=== PATIENT | male | born 1945 | race Caucasian/White ===

== ENCOUNTER 2022-05-05 13:16 | Inpatient (IN) | payer MEDICARE, OTHER ==
[2022-05-05 18:44] VITALS: BMI 29.0
[2022-05-06] MEDS ORDERED: tiZANidine HCl 4 MG TAB PO PRN (00:50)
[2022-05-06] MEDS ORDERED: Acetaminophen 500 MG TAB PO PRN (00:52)
[2022-05-06] MEDS ORDERED: FLU VACC QS2022-23(65YR UP)/PF 240 MCG/0.7 ML SYRINGE IM ONE (09:00)
[2022-05-06 09:20] LABS: #Basophils 0.1 thou/uL (0.0-0.2); #Eosinphils 0.3 thou/uL (0.0-0.7); #Lymphocytes 1.6 thou/uL (1.20-3.40); #Monocytes 0.9 thou/uL (0.11-0.59); #Neutrophils 4.5 thou/uL (1.40-6.50); %Basophils 1.6 % (0.0-1.0); %Eosinophils 3.5 % (0.0-10.0); %Lymphocytes 21.9 % (21.0-51.0); %Monocytes 11.8 % (0.0-10.0); %Neutrophils 61.2 % (42.0-75.0); Mean Corpuscular HGB CONC 35.9 g/dL (32.0-36.0); Mean Corpuscular Hemoglobin 36.1 pg (27.0-31.0); Mean Platelet Volume 7.3 fL (7.4-10.4); Platelet Count 328 10x3/uL (130-400); RBC Distribution Width 11.7 % (11.5-14.5); Red Blood Cell (RBC) Count 4.16 mill/uL (4.70-6.10); White Blood Cell (WBC) Count 7.3 10x3/uL (4.8-10.8)
[2022-05-06 09:21] LABS: ALT (SGPT) 13 U/L (8-55); AST (SGOT) 16 U/L (5-34); Albumin 3.6 g/dL (3.4-4.8); Alkaline Phosphatase 70 U/L (40-110); Anion Gap 16 mmol/L (10-20); BUN (Urea Nitrogen) 10 mg/dL (8.4-25.7); Bilirubin, Total 1.1 mg/dL (0.2-1.2); Calc. Creatinine Clearance 109 mL/min (70-130); Calcium 9.3 mg/dL (7.8-10.44); Carbon Dioxide 27 mmol/L (23-31); Chloride 98 mmol/L (98-107); Estimated GFR 92; Glucose 159 mg/dL (83-110); Potassium 3.6 mmol/L (3.5-5.1); Protein, Total 6.6 g/dL (5.8-8.1); Sodium 137 mmol/L (136-145)
[2022-05-06] MEDS: Amlodipine 10 MG TAB PO SCH (10:27)
[2022-05-06] MEDS: Furosemide 20 MG TAB PO SCH (10:27)
[2022-05-06] MEDS: Finasteride 5 MG TAB PO SCH (10:28)
[2022-05-06] MEDS: metFORMIN 500 MG TAB PO SCH ×2 (10:28→16:17)
[2022-05-06] MEDS: Tamsulosin HCl 0.4 MG CAP PO SCH (10:28)
[2022-05-06] MEDS: Multivitamin W/ Minerals 1 TAB PO SCH (10:29)
[2022-05-06] MEDS: Cephalexin 500 MG CAP PO SCH ×4 (10:29→20:45)
[2022-05-06] MEDS: Lisinopril 20 MG TAB PO SCH ×2 (10:34→20:45)
[2022-05-06] MEDS: DOXYCYCLINE 20 MG PO SCH (12:57)
[2022-05-06] MEDS ORDERED: Senokot S 8.6-50 MG TAB PO PRN (14:04)
[2022-05-06] MEDS: azaTHIOprine 50 MG TAB PO SCH ×2 (16:51→20:45)
[2022-05-06] MEDS: Atorvastatin Calcium 40 MG TAB PO SCH (20:45)
[2022-05-06] MEDS ORDERED: Sodium Chloride 0.65% Nasal 44 ML BOT EA NARE PRN (20:50)
[2022-05-06] MEDS ORDERED: Acetaminophen 650 MG Suppository PR PRN (20:50)
[2022-05-06] MEDS ORDERED: Cepastat Lozenges 1 LOZ PO PRN (20:50)
[2022-05-06] MEDS ORDERED: Benzonatate 100 MG CAP PO PRN (20:50)
[2022-05-06] MEDS ORDERED: Bisacodyl 10 MG SUPP PR PRN (20:50)
[2022-05-06] MEDS ORDERED: Artificial Tear Sol 15 ML BOT EA EYE PRN (20:50)
[2022-05-06] MEDS ORDERED: Calcium Carbonate 500 MG ChewTAB PO PRN (20:50)
[2022-05-06] MEDS ORDERED: Guaifenesin DM 100-10/5 ML UDCUP PO PRN (20:50)
[2022-05-06] MEDS ORDERED: Bisacodyl 5 MG TAB PO PRN (20:50)
[2022-05-07] MEDS: Acetaminophen 325 MG TAB PO PRN (05:24)
[2022-05-07 06:16] LABS: #Basophils 0.1 thou/uL (0.0-0.2); #Eosinphils 0.3 thou/uL (0.0-0.7); #Lymphocytes 1.6 thou/uL (1.20-3.40); #Monocytes 0.6 thou/uL (0.11-0.59); #Neutrophils 3.6 thou/uL (1.40-6.50); %Eosinophils 4.7 % (0.0-10.0); %Lymphocytes 26.2 % (21.0-51.0); %Monocytes 10.1 % (0.0-10.0); Hemoglobin 15.1 g/dL (14.0-18.0); Mean Corpuscular HGB CONC 34.9 g/dL (32.0-36.0); Mean Corpuscular Hemoglobin 35.8 pg (27.0-31.0); Mean Platelet Volume 7.4 fL (7.4-10.4); Platelet Count 342 10x3/uL (130-400); RBC Distribution Width 11.9 % (11.5-14.5); Red Blood Cell (RBC) Count 4.22 mill/uL (4.70-6.10); White Blood Cell (WBC) Count 6.2 10x3/uL (4.8-10.8)
[2022-05-07 06:19] LABS: Anion Gap 17 mmol/L (10-20); BUN (Urea Nitrogen) 9 mg/dL (8.4-25.7); Calc. Creatinine Clearance 115 mL/min (70-130); Calcium 9.6 mg/dL (7.8-10.44); Carbon Dioxide 28 mmol/L (23-31); Chloride 100 mmol/L (98-107); Estimated GFR 93; Glucose 160 mg/dL (83-110); Potassium 3.6 mmol/L (3.5-5.1); Sodium 141 mmol/L (136-145)
[2022-05-07] MEDS: Polyethylene Glycol 3350 17 GM Packet PO SCH (08:45)
[2022-05-07] MEDS: Lisinopril 20 MG TAB PO SCH ×2 (08:45→21:11)
[2022-05-07] MEDS: Finasteride 5 MG TAB PO SCH (08:45)
[2022-05-07] MEDS: Furosemide 20 MG TAB PO SCH (08:46)
[2022-05-07] MEDS: Tamsulosin HCl 0.4 MG CAP PO SCH (08:46)
[2022-05-07] MEDS: azaTHIOprine 50 MG TAB PO SCH ×2 (08:46→21:11)
[2022-05-07] MEDS: Multivitamin W/ Minerals 1 TAB PO SCH (08:46)
[2022-05-07] MEDS: Cephalexin 500 MG CAP PO SCH ×4 (08:46→21:11)
[2022-05-07] MEDS: metFORMIN 500 MG TAB PO SCH ×2 (08:47→16:09)
[2022-05-07] MEDS: Amlodipine 10 MG TAB PO SCH (08:47)
[2022-05-07] MEDS: DOXYCYCLINE 20 MG PO SCH (11:35)
[2022-05-07] MEDS: KETOCONAZOLE SHAMPOO TOP SCH (11:36)
[2022-05-07] MEDS: Atorvastatin Calcium 40 MG TAB PO SCH (21:11)
[2022-05-08] MEDS: Polyethylene Glycol 3350 17 GM Packet PO SCH (07:52)
[2022-05-08] MEDS: metFORMIN 500 MG TAB PO SCH ×2 (07:54→18:02)
[2022-05-08] MEDS: Cephalexin 500 MG CAP PO SCH ×4 (07:54→20:18)
[2022-05-08] MEDS: Multivitamin W/ Minerals 1 TAB PO SCH (07:55)
[2022-05-08] MEDS: Amlodipine 10 MG TAB PO SCH (07:56)
[2022-05-08] MEDS: azaTHIOprine 50 MG TAB PO SCH ×2 (07:57→20:18)
[2022-05-08] MEDS: Finasteride 5 MG TAB PO SCH (07:57)
[2022-05-08] MEDS: Furosemide 20 MG TAB PO SCH (07:57)
[2022-05-08] MEDS: Lisinopril 20 MG TAB PO SCH ×2 (08:03→20:18)
[2022-05-08] MEDS: Tamsulosin HCl 0.4 MG CAP PO SCH (08:03)
[2022-05-08] MEDS: DOXYCYCLINE HYCLATE 20 MG PO SCH (09:40)
[2022-05-08] MEDS: Acetaminophen 325 MG TAB PO PRN ×2 (09:56→23:18)
[2022-05-08] MEDS ORDERED: HumaLOG 300 UNITS/3 ML VIAL SC PRN (17:45)
[2022-05-08] MEDS: Atorvastatin Calcium 40 MG TAB PO SCH (20:18)
[2022-05-09 08:48] VITALS: TEMP 98
[2022-05-09] MEDS: Cephalexin 500 MG CAP PO SCH ×2 (09:42→12:04)
[2022-05-09] MEDS: Finasteride 5 MG TAB PO SCH (09:42)
[2022-05-09] MEDS: Amlodipine 10 MG TAB PO SCH (09:42)
[2022-05-09] MEDS: Polyethylene Glycol 3350 17 GM Packet PO SCH ×2 (09:42→09:49)
[2022-05-09] MEDS: metFORMIN 500 MG TAB PO SCH (09:43)
[2022-05-09] MEDS: Furosemide 20 MG TAB PO SCH (09:43)
[2022-05-09] MEDS: Multivitamin W/ Minerals 1 TAB PO SCH (09:43)
[2022-05-09] MEDS: Tamsulosin HCl 0.4 MG CAP PO SCH (09:45)
[2022-05-09] MEDS: azaTHIOprine 50 MG TAB PO SCH (09:45)
[2022-05-09] MEDS: Lisinopril 20 MG TAB PO SCH (09:45)
[2022-05-09] MEDS: DOXYCYCLINE HYCLATE 20 MG PO SCH (09:46)
[2022-05-09] MEDS: KETOCONAZOLE SHAMPOO TOP SCH (09:47)
[2022-05-09 14:45] VITALS: BP 102/72
== END 2022-05-09 17:53 | disposition short-term general hospital (02) | DRG 948 ==
LOC: NAV ACUTE 15:45
PROVIDERS: ADMIT Family Medicine; ATTEND Family Medicine
DX: R53.1 Weakness (principal); K50.90 Crohn's disease, unspecified, without complications; M19.90 Unspecified osteoarthritis, unspecified site; I25.10 Atherosclerotic heart disease of native coronary artery without angina pectoris; K21.9 Gastro-esophageal reflux disease without esophagitis; M10.9 Gout, unspecified; I10 Essential (primary) hypertension; E66.9 Obesity, unspecified; Z96.653 Presence of artificial knee joint, bilateral; E78.2 Mixed hyperlipidemia; E11.65 Type 2 diabetes mellitus with hyperglycemia; Z66 Do not resuscitate; N40.1 Benign prostatic hyperplasia with lower urinary tract symptoms; R33.8 Other retention of urine; Z20.822 Contact with and (suspected) exposure to COVID-19; Z79.84 Long term (current) use of oral hypoglycemic drugs; Z79.899 Other long term (current) drug therapy; Z90.49 Acquired absence of other specified parts of digestive tract; Z98.890 Other specified postprocedural states; Z95.1 Presence of aortocoronary bypass graft; Z98.52 Vasectomy status; Z68.29 Body mass index [BMI] 29.0-29.9, adult
CPT/HCPCS: 36415; 36416; 80048; 80053; 85025; 87811; J1650; J1815; J7500

== ENCOUNTER 2022-05-09 14:21 | Emergency (ER) | payer MEDICARE ==
[2022-05-09 14:42] LABS: #Basophils 0.1 thou/uL (0.0-0.2); #Eosinphils 0.3 thou/uL (0.0-0.7); #Lymphocytes 1.6 thou/uL (1.20-3.40); #Monocytes 0.8 thou/uL (0.11-0.59); #Neutrophils 3.5 thou/uL (1.40-6.50); %Basophils 1.7 % (0.0-1.0); %Eosinophils 4.5 % (0.0-10.0); %Lymphocytes 25.1 % (21.0-51.0); %Monocytes 12.5 % (0.0-10.0); %Neutrophils 56.1 % (42.0-75.0); Hemoglobin 14.5 g/dL (14.0-18.0); Mean Corpuscular HGB CONC 34.4 g/dL (32.0-36.0); Mean Platelet Volume 7.2 fL (7.4-10.4); Platelet Count 331 10x3/uL (130-400); RBC Distribution Width 11.4 % (11.5-14.5); Red Blood Cell (RBC) Count 4.13 mill/uL (4.70-6.10); White Blood Cell (WBC) Count 6.2 10x3/uL (4.8-10.8)
[2022-05-09 14:43] LABS: Prothrombin Time 13.5 sec (12.0-14.7)
[2022-05-09 14:44] LABS: PTT 31.1 sec (22.9-36.1)
[2022-05-09 14:53] LABS: ALT (SGPT) 20 U/L (8-55); AST (SGOT) 24 U/L (5-34); Albumin 3.9 g/dL (3.4-4.8); Alkaline Phosphatase 90 U/L (40-110); Anion Gap 17 mmol/L (10-20); BUN (Urea Nitrogen) 11 mg/dL (8.4-25.7); Bilirubin, Total 0.9 mg/dL (0.2-1.2); Calc. Creatinine Clearance 0 mL/min (70-130); Calcium 9.3 mg/dL (7.8-10.44); Carbon Dioxide 25 mmol/L (23-31); Chloride 101 mmol/L (98-107); Estimated GFR 90; Globulin 2.7 g/dL (2.4-3.5); Glucose 130 mg/dL (83-110); Protein, Total 6.6 g/dL (5.8-8.1); Sodium 139 mmol/L (136-145)
[2022-05-09 15:16] LABS: CKMB 3.2 ng/mL (0-6.6)
[2022-05-09] MEDS ORDERED: Sodium Chloride 0.9% 500 ML ONE ×2 (15:29→16:21)
[2022-05-09 15:53] LABS: Bilirubin Negative (Negative); Blood, Urine Trace (Negative); Clarity Clear (Clear); Glucose, Urine (Dipstick) Negative (Negative); Ketone, Urine Negative (Negative); Leukocyte Negative (Negative); Nitrite Negative (Negative); Protein, Urine (Dipstick) Negative (Neg-Trace); Urobilinogen 0.2 mg/dL (Less than 2)
[2022-05-09 15:56] LABS: Specific Gravity, Urine 1.006 (1.002-1.036)
[2022-05-09 15:59] LABS: Bacteria/HPF None Seen HPF (None Seen); RBC/HPF 0-3 HPF (0-3); Squamous Epithelial None Seen HPF (0-3); WBC/HPF None Seen HPF (0-3)
== END 2022-05-09 18:25 | disposition short-term general hospital (02) ==
LOC: NAV ERS 14:21
DX: I48.91 Unspecified atrial fibrillation (principal); I95.9 Hypotension, unspecified; R00.0 Tachycardia, unspecified; I10 Essential (primary) hypertension; E78.5 Hyperlipidemia, unspecified; E11.9 Type 2 diabetes mellitus without complications; Z87.891 Personal history of nicotine dependence; Z79.84 Long term (current) use of oral hypoglycemic drugs; Z79.82 Long term (current) use of aspirin; Z79.899 Other long term (current) drug therapy
CPT/HCPCS: 71045; 80053; 81003; 81015; 82553; 84443; 84484; 85025; 85610; 85730; 96374; 36415-59; J7030